=== PATIENT | female | born 1985 | race Caucasian/White ===

== ENCOUNTER 2024-01-06 09:22 | Emergency (ER) | payer MEDICAID ==
[~2024-01-06] VITALS: Ht 165.1 cm; Wt 113.4 kg
[2024-01-06 09:32] VITALS: BP 194/87; PULSE 94; RESP 18; TEMP 98.6; O2SAT 98
[2024-01-06 10:13] LABS: BASOPHILS % (AUTO) 0.2 % (0.0-2.0); HEMATOCRIT 40.9 % (36-48); LYMPHOCYTES # (AUTO) 0.7 K/uL (2.5-16.5); LYMPHOCYTES % (AUTO) 4.5 % (20.5-51.1); MEAN CORPUSCULAR HEMOGLOBIN 29 pg (27-31); MEAN CORPUSCULAR HGB CONC 34 g/dL (33-37); MEAN CORPUSCULAR VOLUME 84.4 fL (80-94); MONOCYTES # (AUTO) 0.8 K/uL (0.8-1.0); MONOCYTES % (AUTO) 5.3 % (1.7-9.3); NEUTROPHILS # (AUTO) 13.9 K/uL (1.8-7.7); PLATELET COUNT (AUTO) 135 K/uL (140-450); RED BLOOD CELL COUNT(AUTO) 4.85 MIL/uL (4.20-5.40); RED CELL DISTRIBUTION WIDTH 14.2 % (11.6-13.7); WHITE BLOOD COUNT (AUTO) 15.4 K/uL (4.8-10.8)
[2024-01-06 10:14] LABS: APPEARANCE,URINE CLEAR (CLEAR); BILIRUBIN,URINE NEGATIVE (NEGATIVE); BLOOD, URINE 3+ (NEGATIVE); COLOR,URINE YELLOW (YELLOW); LEUKOCYTE ESTERASE ,URINE NEGATIVE (NEGATIVE); NITRITE, URINE NEGATIVE (NEGATIVE); PROTEIN,URINE 1+ (NEGATIVE); UGLUCOSE 3+ (NEGATIVE); UROBILINOGEN,URINE 0.2 EU/dL (0.2 - 1)
[2024-01-06] MEDS: NACL 0.9% 1,000 ML IV ONE ×2 (10:19→12:18)
[2024-01-06] MEDS: ONDANSETRON 4 MG/2 ML VIAL IVP ONE (10:20)
[2024-01-06] MEDS: KETOROLAC 30 MG/ML VIAL IVP ONE (10:22)
[2024-01-06 10:28] LABS: ANION GAP 12.3 (8-16); CALCIUM 9.7 mg/dL (8.5-10.1); CARBON DIOXIDE 28.1 mmol/L (21-32); POTASSIUM 3.4 mmol/L (3.5-5.1)
[2024-01-06 10:32] LABS: ALBUMIN 3.5 g/dL (3.4-5.0); BILIRUBIN,DIRECT 0.2 mg/dL (0.0-0.3); TOTAL BILIRUBIN 0.8 mg/dL (0.0-1.0); TOTAL PROTEIN, SERUM 8.4 g/dL (6.4-8.2)
[2024-01-06 10:33] LABS: BACTERIA,URINE 0-2 /HPF (None Seen); RBC,URINE >20 (MANY) /HPF (0-5); SQUAMOUS EPITHELIAL CELL,UR 4-10 (MOD) /LPF (0-3 (FEW))
[2024-01-06 10:57] LABS: FLU A ANTIGEN negative (NEGATIVE); FLU B ANTIGEN negative (NEGATIVE)
[2024-01-06] MEDS ORDERED: cefTRIAXone 1,000 MG VIAL ONE (11:13)
[2024-01-06] MEDS: lisinopriL 20 MG TAB PO ONE (11:23)
[2024-01-06] MEDS: INSULIN REGULAR, HUMAN 100 UNIT/ML VIAL SUBQ ONE (11:52)
[2024-01-06] MEDS ORDERED: LANTUS SUBQ (12:54)
[2024-01-06] MEDS ORDERED: LISI-953 PO (12:54)
[2024-01-06 13:45] VITALS: BP 165/87; PULSE 94; RESP 18; TEMP 37.00296; O2SAT 79
== END 2024-01-06 13:45 | disposition home or self-care (01) ==
LOC: MED 09:22
DX: N39.0 Urinary tract infection, site not specified (principal); E11.65 Type 2 diabetes mellitus with hyperglycemia; Z20.822 Contact with and (suspected) exposure to COVID-19; I10 Essential (primary) hypertension; Z79.899 Other long term (current) drug therapy; Z79.4 Long term (current) use of insulin
CPT/HCPCS: 36415; 71045; 80048; 80076; 81001; 81025; 82009; 82948; 83690; 83880; 84484; 85025; 87040; 87086; 87426; 87804; 93005; 96361; 96365; 96372; 96375; 99285; J0696; J1815; J1885; J2405; J7030